=== PATIENT | male | born 1980 | race Caucasian/White ===

== ENCOUNTER 2019-01-08 14:30 | Observation (INO) ==
[2019-01-08] MEDS ORDERED: Clindamycin 600 MG/50 ML 600 MG/50 ML IV.SOLN IVPB STA (15:12)
[2019-01-08] MEDS ORDERED: *HR* OxyCODONE/APAP 5/325 TABLET PO ONE (15:12)
[2019-01-08 15:41] LABS: Basophils # 0.1 K/mcL (0.0-0.2); Basophils % 0.7 %; Eosinophils # 0.2 K/mcL (0.0-0.6); Eosinophils % 1.6 %; Hematocrit 42.4 % (37.5-50.1); Hemoglobin 14.3 g/dL (12.9-16.9); Immature Granulocytes % 0.3 % (0-4); Lymphocytes # 2.5 K/mcL (0.6-4.6); Lymphocytes % 26.3 %; Mean Corpuscular HGB Conc 33.7 g/dL (31.6-35.5); Mean Corpuscular Hemoglobin 30.6 pg (28.0-33.3); Mean Corpuscular Volume 90.6 fL (83.0-100.0); Mean Platelet Volume 9.1 fL (9.4-12.4); Monocytes # 0.8 K/mcL (0.0-1.3); Monocytes % 8.1 %; Neutrophils # 5.9 K/mcL (1.6-8.9); Platelet Count 384 K/mcL (140-400); Red Blood Count 4.68 M/mcL (4.19-5.50); Red Cell Distribution Width 14.6 % (11.5-14.5); White Blood Count 9.4 K/mcL (4.3-11.1)
[2019-01-08 15:57] LABS: BUN/Creatinine Ratio 34 (6-26); Blood Urea Nitrogen 19 mg/dL (6-20); Calcium 8.9 mg/dL (8.6-10.3); Carbon Dioxide 24 mEq/L (23-29); Chloride 106 mEq/L (98-107); Glucose 97 mg/dL (70-105); Osmolality,Calculated 288 (280-300); Potassium 4.3 mEq/L (3.5-5.1); Sodium 138 mEq/L (136-145); eGFR For African Americans > 60 (> 60); eGFR For Non-African Americans > 60 (> 60)
[2019-01-08] MEDS ORDERED: Gadolinium Contrast Agent (WT Based) IV PRN (16:41)
[2019-01-08] MEDS ORDERED: Naloxone 0.4 MG/ML INJ IVP PRN (20:38)
[2019-01-08] MEDS ORDERED: 0.9 % Sodium Chloride 1,000 ML IVC SCH (20:45)
[2019-01-08 21:42] LABS: C-Reactive Protein 10 mg/L (Less than 10)
[2019-01-08] MEDS: *HR* Heparin 5,000 UNIT/ML VIAL SQ SCH (22:18)
[2019-01-08] MEDS ORDERED: 0.9 % Sodium Chloride 1,000 ML IV ONE (22:21)
[2019-01-09] MEDS: *HR* Heparin 5,000 UNIT/ML VIAL SQ SCH ×3 (02:41→23:48)
[2019-01-09] MEDS ORDERED: Nicotine 2 MG GUM BC PRN (02:48)
[2019-01-09 04:47] LABS: Basophils # 0.1 K/mcL (0.0-0.2); Basophils % 0.9 %; Eosinophils # 0.2 K/mcL (0.0-0.6); Eosinophils % 1.9 %; Hematocrit 41.7 % (37.5-50.1); Hemoglobin 13.6 g/dL (12.9-16.9); Immature Granulocytes % 0.3 % (0-4); Lymphocytes # 2.8 K/mcL (0.6-4.6); Lymphocytes % 35.9 %; Mean Corpuscular HGB Conc 32.6 g/dL (31.6-35.5); Mean Corpuscular Hemoglobin 29.9 pg (28.0-33.3); Mean Corpuscular Volume 91.6 fL (83.0-100.0); Mean Platelet Volume 9.2 fL (9.4-12.4); Monocytes # 0.6 K/mcL (0.0-1.3); Monocytes % 8.1 %; Neutrophils # 4.1 K/mcL (1.6-8.9); Platelet Count 365 K/mcL (140-400); Red Blood Count 4.55 M/mcL (4.19-5.50); Red Cell Distribution Width 14.4 % (11.5-14.5); Segmented Neutrophils % 52.9 %; White Blood Count 7.8 K/mcL (4.3-11.1)
[2019-01-09 04:56] LABS: Prothrombin Time 10.8 Seconds (9.4-12.1)
[2019-01-09 05:05] LABS: Alanine Aminotransferase 40 Units/L (7-52); Albumin 3.1 g/dL (3.5-5.7); Albumin/Globulin Ratio 1.1 (1.1-2.2); Alkaline Phosphatase 104 Units/L (34-104); Aspartate Amino Transferase 27 Units/L (13-39); BUN/Creatinine Ratio 22 (6-26); Bilirubin,Total 0.2 mg/dL (0.3-1.0); Blood Urea Nitrogen 14 mg/dL (6-20); Calcium 8.6 mg/dL (8.6-10.3); Carbon Dioxide 25 mEq/L (23-29); Chloride 107 mEq/L (98-107); Chol/HDL Ratio 2.7 (0-4.9); Cholesterol 120 mg/dL (< 200); Globulin 2.9 g/dL (2.4-3.5); Glucose 106 mg/dL (70-105); HDL Cholesterol 44 mg/dL (40-59); LDL Cholesterol,Calculated 62 mg/dL (0-99); Magnesium 1.8 mg/dL (1.6-2.6); Osmolality,Calculated 287 (280-300); Phosphorous 3.7 mg/dL (2.7-4.5); Sodium 138 mEq/L (136-145); Triglycerides 69 mg/dL (< 150); eGFR For African Americans > 60 (> 60); eGFR For Non-African Americans > 60 (> 60)
[2019-01-09] MEDS ORDERED: Piperacillin/Tazobactam 3.375 GM in Water for inj. (sterile) 20 ML IVP ONE (07:20)
[2019-01-09] MEDS ORDERED: Piperacillin/Tazobactam 3.375 GM in 0.9 % Sodium Chloride Mini Bag 100 ML IVPB ONE (07:43)
[2019-01-09] MEDS: Nicotine 14 MG PATCH.TD24 TD SCH (08:59)
[2019-01-09] MEDS: *HR* OxyCODONE/APAP 5/325 TABLET PO PRN ×2 (10:23→23:52)
[2019-01-09] MEDS ORDERED: *HR* LORazepam 0.5 MG TABLET PO PRN (14:59)
[2019-01-10] MEDS: *HR* Heparin 5,000 UNIT/ML VIAL SQ SCH (05:20)
[2019-01-10] MEDS: *HR* OxyCODONE/APAP 5/325 TABLET PO PRN (05:25)
[2019-01-10 06:47] VITALS: BP 108/71
[2019-01-10] MEDS: Nicotine 14 MG PATCH.TD24 TD SCH (07:33)
== END 2019-01-10 11:00 | disposition home or self-care (01) ==
LOC: 3NENU 14:30 → EMEROOARM 14:30 → SUATTDRO 21:17 → 3NENU 21:48
PROVIDERS: ADMIT Internal Medicine; ATTEND Family Medicine